=== PATIENT | female | born 1980 | race Caucasian/White ===

== ENCOUNTER 2016-10-10 21:55 | Emergency (ER) | payer OTHER ==
[2016-10-10 22:17] LABS: ABSOLUTE NEUTROPHIL COUNT 4.9 K/mm3 (1.8-7.7); BASO % 0.3 % (0.2-1.0); EOS # 0.1 (0.0-0.5); EOS % 1.1 % (0.9-2.9); HEMATOCRIT 38.4 % (37.0-47.0); HEMOGLOBIN 13.1 gm/l (12.0-16.0); IMM NEUT% 0.3 % (0-1); LYMPH # 3.5 (1.0-4.8); LYMPH % 37.7 % (15-45); MEAN CELL VOLUME 91.4 fl (81.0-99.0); MEAN CORPUSCULAR HEMOGLOBIN 31.2 pg (27.0-31.0); MEAN CORPUSCULAR HGB CONC 34.1 g/dl (33.0-37.0); MEAN PLATELET VOLUME 10.8 fl (7.4-10.4); MONO # 0.7 (0.0-0.8); MONO % 7.8 % (4-12); NEUT % 52.8 % (43-75); PLATELET COUNT 246 K/mm3 (130-400)
[2016-10-10 22:38] LABS: ALB/GLOB RATIO 1.4 (>1.0); ALBUMIN 4.3 gm/dL (3.5-5.7); CALCIUM 9.5 mg/dL (8.6-10.3)
[2016-10-10 22:39] LABS: TROPONIN I < 0.01 ng/ml (0.0-0.06)
[2016-10-10 22:43] LABS: CKMB ISOENZYME 3.6 ng/ml (0.6-6.3)
[2016-10-10] MEDS ORDERED: ASPIRIN CHEWTAB 81 MG TABLET ONE (22:54)
[2016-10-11] MEDS ORDERED: ACETAMINOPHEN 325 MG TABLET ONE (00:04)
[2016-10-11] MEDS ORDERED: IBUPROFEN 600 MG TABLET ONE (00:04)
[2016-10-11] MEDS ORDERED: ONDANSETRON 4 MG/2ML 2 ML VIAL ONE (00:04)
--- NOTE | 2016-10-11 07:50 | RAD ---
History: Left upper chest and shoulder pain for 2 hours. Comparison: None. Technique: 2 views Findings: The soft tissue and bony structures are unremarkable. The heart size is appropriate. No infiltrate, effusion or pneumothorax is observed. The hilar and mediastinal structures are normal. Minimal linear left basilar atelectasis or scarring is present. Impression: 1. Linear atelectasis or scarring within the left pulmonary base. 2. An otherwise negative two-view chest.
== END 2016-10-11 03:20 | disposition home or self-care (01) ==
LOC: ED 21:55
DX: R07.9 Chest pain, unspecified (principal); R11.0 Nausea
CPT/HCPCS: 83690; 84703; 85025; 82553; 80053; 84484 ×2; 71020; 99283; 96374; 99284; A9270 ×3; J2405